=== PATIENT | female | born 1990 | race Caucasian/White ===

== ENCOUNTER 2017-10-09 19:22 | Emergency (ER) | payer OTHER ==
[2017-10-09 19:30] VITALS: RESP 16; O2SAT 94
--- NOTE | 2017-10-09 20:23 | EDPHY ---
H & P Stated Complaint: URI symptoms and right side throat pain Time Seen by Provider: 10/09/17 19:51 HPI/ROS: CHIEF COMPLAINT: Sore throat, fever HISTORY OF PRESENT ILLNESS: This 26-year-old female who presents with 3 days of fatigue and intermittent fever. Earlier today she developed a sore throat that is worsened throughout the day. She is having difficulty swallowing. She reports a mild cough and runny nose. She has had myalgias. She did not get a flu shot this year. She states that she has susceptible to strep throat and that this feels a lot like previous strep throat. REVIEW OF SYSTEMS: A ten point review of systems was performed and is negative with the exception of the items mentioned in the HPI. Past medical history: 1. Mononucleosis 2. 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 She does not use tobacco products. General Appearance: Alert. Vital signs reviewed. Eyes: Pupils equal and round, no conjunctival injection, no discharge. Anicteric. ENT, Mouth: Mucous membranes are moist, tonsillar erythema/swelling/exudates. Neck: Anterior cervical lymphadenopathy, supple. No meningeal signs. Respiratory: Lungs are clear to auscultation; no wheezes, rales, or rhonchi. Cardiovascular: Regular rate and rhythm; no murmur, rub, or gallop. Gastrointestinal: Abdomen is soft and nontender, no masses or organomegaly, bowel sounds normal. Skin: Warm and dry, no rashes on exposed skin, normal color. Back: Nontender to palpation over the thoracolumbar spine. No CVAT. Extremities: No lower extremity edema, no calf tenderness or swelling. Neurological: Alert and oriented. Moving all four extremities easily and equally. Psychiatric: Normal affect. - Personal History LMP (Females 10-55): Now Current Tetanus/Diphtheria Vaccine: Yes Current Tetanus Diphtheria and Acellular Pertussis (TDAP): Yes - Medical/Surgical History Hx Asthma: No Hx Chronic Respiratory Disease: No Hx Diabetes: No Hx Cardiac Disease: No Hx Renal Disease: No Hx Cirrhosis: No Hx Alcoholism: No Hx HIV/AIDS: No Hx Splenectomy or Spleen Trauma: No Other PMH: ADD, anxiety - Social History Smoking Status: Current every day smoker Constitutional: Initial Vital Signs Temperature (C) 37.6 C 10/09/17 19:27 Heart Rate 93 10/09/17 19:27 Respiratory Rate 16 10/09/17 19:27 Blood Pressure 145/76 H 10/09/17 19:27 O2 Sat (%) 94 10/09/17 19:27 O2 Delivery Mode Room Air Allergies/Adverse Reactions: No Known Allergies Allergy (Unverified 10/09/17 19:30) Home Medications: Medication Instructions Recorded Amphet Asp and D/Amphet [Adderall 10/09/17 10 MG (*)] Oseltamivir Phosphate [Tamiflu 75 75 mg PO BID #10 cap 10/09/17 mg (*)] Penicillin V Potassium [Penicillin 500 mg PO BID #14 tab 10/09/17 VK] Syred 10/09/17 Medical Decision Making ED Course/Re-evaluation: Influenza and strep testing are negative. However, her clinical presentation is consistent with strep pharyngitis. I am choosing to treat her with an antibiotic, penicillin, while awaiting the DNA strep test. I talked with her of about viral syndrome. I recommended that she remain off work and so question herself until she has been without fever for over 24 hr. We reviewed symptomatic treatment stressing the importance of fever and pain control and hydration. Differential Diagnosis: I considered a differential diagnosis that includes but is not limited to strep pharyngitis, influenza, otitis media, retropharyngeal abscess, epiglottitis, tonsillar abscess, and viral syndrome. Departure - Departure Disposition: Home, Routine, Self-Care Clinical Impression: Influenza Acute pharyngitis Qualifiers: Pharyngitis/tonsillitis etiology: unspecified etiology Qualified Code(s): J02.9 - Acute pharyngitis, unspecified Condition: Good Instructions: Pharyngitis (ED), Influenza (ED) Additional Instructions: As we discussed, I am concerned that your sore throat might be a strep pharyngitis. I am choosing to treat you with antibiotics for this. You also have signs and symptoms consistent with the flu. I have prescribed Tamiflu--an antiviral medication that might shorten the length of your illness by a day. You should not work until you are completely recovered. This illness might last a week or so. Continue to force fluids. Get lots of rest. Adult Pain & Fever Control: We recommend Acetaminophen (Tylenol) and Ibuprofen (Motrin,Advil) for pain and fever control. When fever is high or pain severe, both drugs can be used at the same time, but at different intervals. Please note the time differences. Your dose is: Acetaminophen 650mg every 4 to 6 hours Ibuprofen 400mg every 6 hours with food OR . Note: do not take Acetaminophen with Hydrocodone (Vicodin, Lortab) or Oycodone (Percocet). These medications also contain Acetaminophen. No more than 3000mg of Acetaminophen should be taken in 24 hours (for an adult). Referrals: Akila Chowdhury DO [Doctor of Osteopathy] - As per Instructions Stand Alone Forms: Work Excuse Prescriptions: Oseltamivir Phosphate [Tamiflu 75 mg (*)] 75 mg PO BID #10 cap Penicillin V Potassium [Penicillin VK] 500 mg PO BID #14 tab
[2017-10-09 20:44] VITALS: BP 114/73; PULSE 96; TEMP 98.4
== END 2017-10-09 20:43 | disposition home or self-care (01) ==
DX: J11.1 Influenza due to unidentified influenza virus with other respiratory manifestations (principal); F17.200 Nicotine dependence, unspecified, uncomplicated